=== PATIENT | female | born 1935 | race Caucasian/White ===

== ENCOUNTER 2024-05-30 08:34 | Emergency (ER) | payer MEDICARE, BC ==
[2024-05-30] MEDS ORDERED: Amiodarone 150 MG/3 ML VIAL ONE (09:02)
[2024-05-30 09:36] LABS: #Basophils 0.04 10x3/uL (0.0-0.2); #Eosinophils 0.05 10x3/uL (0.0-0.5); #Monocytes 0.56 10x3/uL (0.0-1.1); #Neutrophils 5.08 10x3/uL (1.5-8.4); %Basophils 0.6 % (0.0-2.0); %Eosinophils 0.7 % (0.0-6.0); %Lymphocytes 17.1 % (18.0-47.0); %Monocytes 8.1 % (0.0-10.0); %Neutrophils 73.2 % (40.0-75.0); Hematocrit 46.6 % (34.9-44.5); Hemoglobin 15.3 g/dL (12.0-15.5); Mean Corpuscular HGB CONC 32.8 g/dL (32.0-36.0); Mean Corpuscular Hemoglobin 29.8 pg (27.0-33.0); Mean Corpuscular Volume 90.8 fL (81.6-98.3); Mean Platelet Volume 10.6 fL (7.4-10.4); Platelet Count 192 10x3/uL (150-450); RBC Distribution Width 13.9 % (11.5-14.5); Red Blood Cell (RBC) Count 5.13 10x6/uL (3.90-5.03); White Blood Cell (WBC) Count 6.9 10x3/uL (3.5-10.5)
[2024-05-30 09:43] LABS: INR-International Normal Ratio 1.1; Prothrombin Time 12.1 sec (9.5-12.1)
[2024-05-30 09:51] LABS: ALT (SGPT) 35 U/L (8-55); AST (SGOT) 34 U/L (5-34); Albumin 3.6 g/dL (3.4-4.8); Alkaline Phosphatase 89 U/L (40-110); Anion Gap 13 mmol/L (10-20); BUN (Urea Nitrogen) 17 mg/dL (9.8-20.1); Bilirubin, Total 1.5 mg/dL (0.2-1.2); Calc. Creatinine Clearance 0 mL/min (70-130); Calcium 9.8 mg/dL (7.8-10.44); Carbon Dioxide 31 mmol/L (23-31); Chloride 100 mmol/L (98-107); Estimated GFR 45; Globulin 3.6 g/dL (2.4-3.5); Glucose 99 mg/dL (83-110); Potassium 4.4 mmol/L (3.5-5.1); Protein, Total 7.2 g/dL (5.8-8.1); Sodium 140 mmol/L (136-145)
[2024-05-30 10:02] LABS: Bilirubin Neg (Negative); Blood, Urine 25 (Negative); Clarity Clear (Clear); Glucose, Urine (Dipstick) Normal (Negative); Ketone, Urine Negative (Negative); Leukocyte 25 (Negative); Nitrite Negative (Negative); Protein, Urine (Dipstick) 15 mg/dl (Neg-Trace); Specific Gravity, Urine 1.015 (1.005-1.030); Urobilinogen Normal mg/dL (Less than 2)
[2024-05-30 10:15] LABS: CAUTI Indications for Culture Pelvic or flank pain; RBC/HPF 0-3 HPF (0-3); WBC/HPF 0-3 HPF (0-3)
[2024-05-30 10:16] LABS: Bacteria/HPF Rare-Few HPF (None Seen); Renal Epithelial 0-3 HPF (None Seen); Squamous Epithelial 0-3 HPF (0-3); Urine Culture Reflex No No
== END 2024-05-30 10:40 | disposition home or self-care (01) ==
LOC: CSHERS 08:34
DX: K64.9 Unspecified hemorrhoids (principal); I48.20 Chronic atrial fibrillation, unspecified; E78.5 Hyperlipidemia, unspecified; I10 Essential (primary) hypertension; Z79.899 Other long term (current) drug therapy; Z79.01 Long term (current) use of anticoagulants
CPT/HCPCS: 80053; 81001; 85025; 85610; 93005; 96374; 99285; J0282; 93010

== ENCOUNTER 2024-06-01 10:24 | Inpatient (IN) | payer MEDICARE, BC ==
[2024-06-01 10:50] LABS: #Basophils 0.04 10x3/uL (0.0-0.2); #Eosinophils 0.15 10x3/uL (0.0-0.5); #Monocytes 0.68 10x3/uL (0.0-1.1); #Neutrophils 5.53 10x3/uL (1.5-8.4); %Basophils 0.5 % (0.0-2.0); %Lymphocytes 15.3 % (18.0-47.0); %Neutrophils 72.8 % (40.0-75.0); Hematocrit 45.9 % (34.9-44.5); Hemoglobin 14.9 g/dL (12.0-15.5); Mean Corpuscular HGB CONC 32.5 g/dL (32.0-36.0); Mean Corpuscular Hemoglobin 29.9 pg (27.0-33.0); Platelet Count 185 10x3/uL (150-450); RBC Distribution Width 14.2 % (11.5-14.5); Red Blood Cell (RBC) Count 4.99 10x6/uL (3.90-5.03); White Blood Cell (WBC) Count 7.6 10x3/uL (3.5-10.5)
[2024-06-01 11:00] LABS: INR-International Normal Ratio 1.1; PTT 26.1 sec (22.0-33.0); Prothrombin Time 12.3 sec (9.5-12.1)
[2024-06-01 11:04] LABS: ALT (SGPT) 33 U/L (8-55); AST (SGOT) 26 U/L (5-34); Albumin 3.4 g/dL (3.4-4.8); Alkaline Phosphatase 92 U/L (40-110); Anion Gap 14 mmol/L (10-20); BUN (Urea Nitrogen) 19 mg/dL (9.8-20.1); Bilirubin, Total 1.1 mg/dL (0.2-1.2); Calc. Creatinine Clearance 0 mL/min (70-130); Calcium 9.2 mg/dL (7.8-10.44); Carbon Dioxide 27 mmol/L (23-31); Chloride 102 mmol/L (98-107); Estimated GFR 45; Globulin 3.4 g/dL (2.4-3.5); Glucose 96 mg/dL (83-110); Lipase 84 U/L (8-78); Potassium 3.9 mmol/L (3.5-5.1); Protein, Total 6.8 g/dL (5.8-8.1); Sodium 139 mmol/L (136-145)
[2024-06-01 11:08] LABS: Troponin I Less than 0.010 ng/mL (< 0.028)
[2024-06-01] MEDS ORDERED: Metoprolol Tartrate 5 MG (5 mL) VIAL ONE (11:14)
[2024-06-01] MEDS ORDERED: Magnesium 2 GM/50 ML BAG (IN WATER) ONE (11:15)
[2024-06-01 12:27] LABS: Bilirubin Neg (Negative); Blood, Urine Negative (Negative); Clarity Clear (Clear); Glucose, Urine (Dipstick) Normal (Negative); Ketone, Urine Negative (Negative); Leukocyte Negative (Negative); Nitrite Negative (Negative); Protein, Urine (Dipstick) Negative (Neg-Trace); Specific Gravity, Urine 1.005 (1.005-1.030); Urobilinogen Normal mg/dL (Less than 2)
[2024-06-01 12:48] LABS: CAUTI Indications for Culture Pelvic or flank pain; RBC/HPF None Seen HPF (0-3); WBC/HPF 0-3 HPF (0-3)
[2024-06-01 12:49] LABS: Bacteria/HPF Rare-Few HPF (None Seen); Urine Culture Reflex No No
[2024-06-01] MEDS ORDERED: Furosemide 40 MG (4 mL) VIAL ONE (13:11)
[2024-06-01 14:18] VITALS: BMI 37.1
[2024-06-01] MEDS ORDERED: Diazepam 5 MG TAB PO PRN (14:33)
[2024-06-01] MEDS ORDERED: Acetaminophen 650 MG Suppository PR PRN (14:34)
[2024-06-01] MEDS ORDERED: Fluticasone Propionate Nasal Spray 16 gm Bottle NASAL PRN (15:09)
[2024-06-01] MEDS ORDERED: Methyl Salicylate/Menthol 85 GM TUBE TOP PRN (15:15)
[2024-06-01] MEDS: Dronedarone HCl 400 MG TAB PO SCH (16:02)
[2024-06-01] MEDS: Acetaminophen 325 MG TAB PO SCH (16:03)
[2024-06-01] MEDS: Famotidine 20 MG TAB PO SCH (20:22)
[2024-06-01] MEDS: Metoprolol Tartrate 50 MG TAB PO SCH (20:22)
[2024-06-01] MEDS: Apixaban 2.5 MG TAB PO SCH (20:22)
[2024-06-01] MEDS: Senokot S 8.6-50 MG TAB PO PRN (20:29)
[2024-06-02 04:14] LABS: #Basophils 0.05 10x3/uL (0.0-0.2); #Eosinophils 0.13 10x3/uL (0.0-0.5); %Basophils 0.9 % (0.0-2.0); %Eosinophils 2.3 % (0.0-6.0); %Lymphocytes 22.8 % (18.0-47.0); %Monocytes 8.8 % (0.0-10.0); Hematocrit 42.5 % (34.9-44.5); Hemoglobin 13.8 g/dL (12.0-15.5); Mean Corpuscular HGB CONC 32.5 g/dL (32.0-36.0); Mean Corpuscular Hemoglobin 29.7 pg (27.0-33.0); Mean Corpuscular Volume 91.6 fL (81.6-98.3); Mean Platelet Volume 11.1 fL (7.4-10.4); Platelet Count 165 10x3/uL (150-450); RBC Distribution Width 14.3 % (11.5-14.5); Red Blood Cell (RBC) Count 4.64 10x6/uL (3.90-5.03); White Blood Cell (WBC) Count 5.7 10x3/uL (3.5-10.5)
[2024-06-02 04:23] LABS: Anion Gap 14 mmol/L (10-20); BUN (Urea Nitrogen) 19 mg/dL (9.8-20.1); Calc. Creatinine Clearance 49 mL/min (70-130); Carbon Dioxide 31 mmol/L (23-31); Chloride 101 mmol/L (98-107); Estimated GFR 45; Glucose 91 mg/dL (83-110); Magnesium 2.3 mg/dL (1.6-2.6); Potassium 4.5 mmol/L (3.5-5.1); Sodium 141 mmol/L (136-145)
[2024-06-02] MEDS: Magnesium Oxide 250 MG TAB PO SCH (08:32)
[2024-06-02] MEDS: Metoprolol Tartrate 50 MG TAB PO SCH ×2 (08:32→19:54)
[2024-06-02] MEDS: Furosemide 20 MG (2 mL) VIAL SLOW IVP SCH (08:32)
[2024-06-02] MEDS: Furosemide 40 MG (4 mL) VIAL SLOW IVP SCH (16:47)
[2024-06-02] MEDS: Apixaban 5 MG TAB PO SCH (19:54)
[2024-06-03 07:47] LABS: #Basophils 0.03 10x3/uL (0.0-0.2); #Eosinophils 0.06 10x3/uL (0.0-0.5); #Monocytes 0.52 10x3/uL (0.0-1.1); #Neutrophils 3.42 10x3/uL (1.5-8.4); %Basophils 0.6 % (0.0-2.0); %Eosinophils 1.1 % (0.0-6.0); %Lymphocytes 24.3 % (18.0-47.0); %Monocytes 9.7 % (0.0-10.0); %Neutrophils 63.9 % (40.0-75.0); Hematocrit 42.6 % (34.9-44.5); Hemoglobin 13.4 g/dL (12.0-15.5); Mean Corpuscular HGB CONC 31.5 g/dL (32.0-36.0); Mean Corpuscular Hemoglobin 28.5 pg (27.0-33.0); Mean Corpuscular Volume 90.6 fL (81.6-98.3); Mean Platelet Volume 11.2 fL (7.4-10.4); Platelet Count 167 10x3/uL (150-450); RBC Distribution Width 13.9 % (11.5-14.5); White Blood Cell (WBC) Count 5.4 10x3/uL (3.5-10.5)
[2024-06-03 07:53] LABS: Anion Gap 14 mmol/L (10-20); BUN (Urea Nitrogen) 19 mg/dL (9.8-20.1); Calc. Creatinine Clearance 52 mL/min (70-130); Calcium 8.8 mg/dL (7.8-10.44); Carbon Dioxide 29 mmol/L (23-31); Chloride 101 mmol/L (98-107); Estimated GFR 47; Glucose 92 mg/dL (83-110); Potassium 3.4 mmol/L (3.5-5.1); Sodium 141 mmol/L (136-145)
[2024-06-03] MEDS: Furosemide 20 MG TAB PO SCH (09:03)
[2024-06-03] MEDS: Potassium Chloride 10 MEQ TAB PO SCH (09:17)
[2024-06-03] MEDS: Potassium Chloride 20 MEQ TAB PO SCH (09:19)
[2024-06-03] MEDS: Mag-Al Plus 1200/1200/120 MG (30 mL) UDCUP PO PRN (14:16)
[2024-06-03] MEDS: Pantoprazole DR 40 MG TAB PO SCH (14:16)
[2024-06-04 04:04] LABS: Anion Gap 14 mmol/L (10-20); BUN (Urea Nitrogen) 21 mg/dL (9.8-20.1); Calc. Creatinine Clearance 51 mL/min (70-130); Calcium 8.9 mg/dL (7.8-10.44); Carbon Dioxide 29 mmol/L (23-31); Chloride 101 mmol/L (98-107); Estimated GFR 46; Glucose 93 mg/dL (83-110); Potassium 4.3 mmol/L (3.5-5.1); Sodium 140 mmol/L (136-145)
[2024-06-04] MEDS: Pantoprazole DR 40 MG TAB PO SCH (12:40)
[2024-06-04] MEDS: Metoprolol Tartrate 50 MG TAB PO SCH (21:17)
[2024-06-05] MEDS: Losartan 25 MG TAB PO SCH (10:11)
[2024-06-05 10:34] LABS: Anion Gap 14 mmol/L (10-20); BUN (Urea Nitrogen) 18 mg/dL (9.8-20.1); Calc. Creatinine Clearance 52 mL/min (70-130); Calcium 8.7 mg/dL (7.8-10.44); Carbon Dioxide 30 mmol/L (23-31); Chloride 99 mmol/L (98-107); Estimated GFR 48; Glucose 114 mg/dL (83-110); Potassium 3.7 mmol/L (3.5-5.1); Sodium 139 mmol/L (136-145)
[2024-06-05] MEDS: Potassium Chloride 20 MEQ TAB PO SCH (13:08)
[2024-06-05] MEDS: Guaifenesin DM 100-10/5 ML UDCUP PO PRN (13:08)
[2024-06-05] MEDS: Metoprolol Tartrate 25 MG TAB PO SCH (13:36)
[2024-06-05 16:23] VITALS: BP 146/83; TEMP 97.8
[2024-06-05] MEDS ORDERED: Metoprolol Tartrate 25 MG TAB PO SCH (21:00)
[2024-06-06] MEDS ORDERED: Losartan 25 MG TAB PO SCH (09:00)
== END 2024-06-05 16:55 | disposition home or self-care (01) | DRG 291 ==
LOC: CSHERS 10:24 → CSHTELE 13:08 → OBSVTOIN 06-02 09:59
PROVIDERS: ADMIT Family Medicine; ATTEND Hospitalist
PROC: 5A09357 Assistance with Respiratory Ventilation, Less than 24 Consecutive Hours, Continuous Positive Airway Pressure (ICD-10-PCS; 2024-06-02)
PROC: 5A2204Z Restoration of Cardiac Rhythm, Single (ICD-10-PCS; principal; 2024-06-04)
DX: I11.0 Hypertensive heart disease with heart failure (principal); I50.33 Acute on chronic diastolic (congestive) heart failure; N17.9 Acute kidney failure, unspecified; I48.19 Other persistent atrial fibrillation; G47.33 Obstructive sleep apnea (adult) (pediatric); E78.5 Hyperlipidemia, unspecified; I49.5 Sick sinus syndrome; Z88.8 Allergy status to other drugs, medicaments and biological substances; Z98.890 Other specified postprocedural states; Z79.01 Long term (current) use of anticoagulants; Z79.899 Other long term (current) drug therapy; Z90.49 Acquired absence of other specified parts of digestive tract
CPT/HCPCS: 36415; 71045; 80048; 80053; 81001; 83690; 83735; 83880; 84443; 84484; 85025; 85610; 85730; 87428; 92960; 93005; 93010; 94760; 96374; 96375; 96376; G0378; J1940; J3475